=== PATIENT | male | born 1985 | race Two or more races ===

== ENCOUNTER 2018-06-05 14:24 | Emergency (ER) | payer SELFPAY ==
--- NOTE | 2018-06-05 14:30 | PDOC ---
Rapid Medical Evaluation Time Seen by Provider: 06/05/18 14:27 Medical Evaluation: 06/05/18 14:27 I have performed a brief in-person evaluation of this patient. The patient presents with a chief complaint of: sore throat "ball in throat" for one day. allergy to tylenol. Pertinent physical exam findings:none I have ordered the following:rapid strep The patient will proceed to the ED for further evaluation. 06/05/18 14:29
[2018-06-05 14:33] VITALS: BP 159/82; PULSE 84; TEMP 97.9; BMI 41.3
--- NOTE | 2018-06-05 14:59 | PDOC ---
History of Present Illness - General Chief Complaint: Itching Stated Complaint: SORE THROAT Time Seen by Provider: 06/05/18 14:27 History Source: Patient Exam Limitations: No Limitations - History of Present Illness Initial Comments: 06/05/18 14:56 33-year-old male with complaints of itchy throat without fever, difficult swallowing, thyroid disorders, recent illness. Patient states has taken no medication decided to come to the ER for further evaluation he's had it since yesterday. Timing/Duration: reports: yesterday Severity: reports: mild Associated Symptoms: reports: sore throat Past History - Travel Traveled outside of the country in the last 30 days: No - Suicide/Smoking/Psychosocial Hx Smoking History: Never smoked Have you smoked in the past 12 months: No Information on smoking cessation initiated: No Hx Alcohol Use: No Drug/Substance Use Hx: No Patient Lives Alone: No Lives with/in: spouse/SO Review of Systems - Review of Systems Able to Perform ROS?: Yes Constitutional: No: Symptoms Reported HEENTM: Yes: Throat Pain. No: Throat Swelling Respiratory: No: Symptoms reported ABD/GI: No: Nausea Integumentary: No: Symptoms Reported Neurological: No: Headache *Physical Exam - Vital Signs Last Vital Signs Temp Pulse Resp BP Pulse Ox 97.9 F 84 20 159/82 98 06/05/18 14:29 06/05/18 14:29 06/05/18 14:29 06/05/18 14:29 06/05/18 14:29 - Physical Exam General Appearance: Yes: Nourished, Appropriately Dressed. No: Apparent Distress HEENT: positive: EOMI, TMs Normal, Pharynx Normal. negative: Pale Conjunctivae Neck: positive: Normal Thyroid, Supple Respiratory/Chest: positive: Lungs Clear, Normal Breath Sounds. negative: Respiratory Distress, Accessory Muscle Use Extremity: positive: Normal Inspection Integumentary: positive: Normal Color, Warm, Moist Neurologic: positive: Motor Strength 5/5 (Ambulatory) Moderate Sedation - Procedure Monitoring Vital Signs: Procedure Monitoring Vital Signs Temperature 97.9 F 06/05/18 14:29 Pulse Rate 84 06/05/18 14:29 Respiratory Rate 20 06/05/18 14:29 Blood Pressure 159/82 06/05/18 14:29 O2 Sat by Pulse Oximetry (%) 98 06/05/18 14:29 Medical Decision Making - Medical Decision Making 06/05/18 14:58 Chief complaint: Itchy throat since yesterday no other complaints. Exam. Normal physical exam. Vital signs stable. Rapid strep sent from [facility]. Rapid strep negative. Discharge with supportive care instructions. *DC/Admit/Observation/Transfer Diagnosis at time of Disposition: Throat pain - Discharge Dispostion Disposition: HOME Condition at time of disposition: Good - Referrals - Patient Instructions Printed Discharge Instructions: Sore Throat Additional Instructions: Rinse warm salt water and eats soft non-abrasive foods for the next few days until symptoms resolve. - Post Discharge Activity
== END 2018-06-05 15:08 | disposition home or self-care (01) ==
LOC: JERFT 14:24
DX: J02.9 Acute pharyngitis, unspecified (principal)
CPT/HCPCS: 87070; 87880; 99281-25